=== PATIENT | female | born 1955 | race Caucasian/White ===

== ENCOUNTER → 2016-11-14 | Outpatient (CLI) | payer OTHER ==
[~2016-11-14] MED LIST: AMIT25TA9 PO; CYAN100020 PO; CYAN500T13 PO; GABA1CAP PO; GABA600T PO; IBUP-1277 PO; LISI-461 PO; LISI10TA PO; MELO15TA4 PO; MULT-506 PO; MULTTAB58 PO; OMEG10007 PO; OMEGCAP2 PO; ONDA4TAB7 SL; OXYC1TAB3 PO; SIMV20TA2 PO; SIMV20TA5 PO
[2016-11-14 17:48] LABS: BLOOD UREA NITROGEN 17 mg/dl (7-18); BUN/CREATININE RATIO 13.2 (10-20); CALCIUM 9.2 mg/dl (8.5-10.1); CARBON DIOXIDE 27 mmol/L (21-32); CHLORIDE 111 mmol/L (98-107); GLUCOSE 88 mg/dl (70-99); POTASSIUM 3.9 mmol/L (3.5-5.1); SODIUM 146 mmol/L (136-145)
[2016-11-14 17:55] LABS: ALT/SGPT 28 U/L (12-78); CHOLESTEROL 150 mg/dl (0-200); CHOLESTEROL/HDL RATIO 3.3; HDL CHOLESTEROL 46 mg/dl; LDL CHOLESTEROL CALCULATED 78 mg/dl; TRIGLYCERIDES 132 mg/dl (0-150); VERY LOW DENSITY LIPOPROT CALC 26 mg/dl
== END | disposition home or self-care (01) ==
LOC: C.LABPBG 11:46
PROVIDERS: ATTEND Family Medicine
DX: I10 Essential (primary) hypertension (principal); E78.5 Hyperlipidemia, unspecified

== ENCOUNTER → 2017-05-31 | Day surgery (SDC) | payer OTHER ==
[2017-05-23 09:39] VITALS: Ht 154.9 cm; Wt 75.5 kg
[~2017-05-31] VITALS: Ht 154.9 cm; Wt 75.5 kg
[~2017-05-31] MED LIST changes: -AMIT25TA9 PO; -CYAN500T13 PO; -GABA1CAP PO; -IBUP-1277 PO; +LIDOCAINE HCL 2% 2 ML VIAL (20MG/ML) ONE; -LISI10TA PO; +MIDAZOLAM HCL 1 MG/ML 2ML VIAL ONE; -MULTTAB58 PO; -OMEGCAP2 PO; -ONDA4TAB7 SL; -OXYC1TAB3 PO; +PROPOFOL IV EMULSION 10 MG/ML 20 ML VIAL IV ONE; -SIMV20TA5 PO; +SODIUM CHLORIDE 0.9% 500ML 500 ML IV ONE
--- NOTE | 2017-05-31 11:13 | Endo History and Physical ---
History & Physical Date of Service: May 31, 2017. Chief Complaint: screening Referring Physician: Dr. Tameka Villafana History of Present Illness 62 yo CF who presents for screening colonoscopy. Past Surgical History Hx Cardiac Surgery: No Hx Internal Defibrillator: No Hx Pacemaker: No Hx Abdominal Surgery: Yes (OVARIAN CYST REMOVAL, PARTIAL HYSTERECTOMY) Hx of Implantable Prosthesis: No Hx Post-Op Nausea and Vomiting: No Hx Cancer Surgery: No Hx Thoracic Surgery: No Hx Orthopedic: No Hx Urinary Tract Surgery: No Family History None Social History Smoking Status: Never Smoker Hx Substance Use: No Hx Alcohol Use: No Allergies Coded Allergies: BEE STING (Verified Allergy, Severe, ANAPHYLAXIS, 05/23/17) Molds and Smuts (Verified Allergy, Unknown, WATERY EYES, 05/23/17) NO KNOWN DRUG ALLERGIES (Verified Allergy, Unknown, ., 05/23/17) Uncoded Allergies: ANIMAL FUR/HAIR (Allergy, Unknown, ., 05/23/17) Current Medications Reported Home Medications Medications Dose Route/Sig Max Daily Dose Days Date Category Zestril (Lisinopril) 10 Mg Tab 5 Mg PO QAM 05/23/17 Reported Zocor (Simvastatin) 20 Mg Tab 20 Mg PO HS 05/23/17 Reported Mobic (Meloxicam) 15 Mg Tab 15 Mg PO QAM 05/23/17 Reported Multivitamin (Multivitamins) Tab 1 Tab PO HS 05/23/17 Reported Neurontin (Gabapentin) 600 Mg Tab 600 Mg PO TID 05/23/17 Reported [place]-3 (Fish Oil) 1 Ea Cap 1 Cap PO QAM 05/23/17 Reported Vitamin B12 (Cyanocobalamin) 1,000 Mcg Tab 1 Tab PO QAM 05/23/17 Reported Vital Signs Weight (Kilograms): 75.45 Height (Feet): 5 Height (Inches): 1 Date Time Temp Pulse Resp B/P (MAP) Pulse Ox O2 Delivery O2 Flow Rate FiO2 05/31/17 10:22 36.5 94 20 141/72 (95) 97 Room Air Physical Exam General Appearance: WD/WN, no apparent distress Respiratory/Chest: Auscultation: breath sounds normal Cardiovascular: Heart Auscultation: RRR Abdomen: Bowel Sounds: normal Inspection & Palpation: soft, non-distended, no tenderness, guarding & rebound Assessment and Plan Assessment: 62 yo CF who presents for screening colonoscopy. Plan: Proceed with Colonoscopy.
--- NOTE | 2017-05-31 11:47 | GI REPORT ---
Procedure Date: 05/31/2017 10:45 AM Procedure: Colonoscopy Indications: Screening for colorectal malignant neoplasm Medicines: Monitored Anesthesia Care Complications: No immediate complications. Estimated Blood Loss: Estimated blood loss: none. Procedure: Pre-Anesthesia Assessment: - Prior to the procedure, a History and Physical was performed, and patient medications and allergies were reviewed. The patient's tolerance of previous anesthesia was also reviewed. The risks and benefits of the procedure and the sedation options and risks were discussed with the patient. All questions were answered, and informed consent was obtained. Prior Anticoagulants: The patient has taken no previous anticoagulant or antiplatelet agents. ASA Grade Assessment: II - A patient with mild systemic disease. After reviewing the risks and benefits, the patient was deemed in satisfactory condition to undergo the procedure. After I obtained informed consent, the scope was passed under direct vision. Throughout the procedure, the patient's blood pressure, pulse, and oxygen saturations were monitored continuously. The scope was introduced through the anus and advanced to the cecum, identified by appendiceal orifice and ileocecal valve. The colonoscopy was performed without difficulty. The patient tolerated the procedure well. The quality of the bowel preparation was good. The terminal ileum, ileocecal valve, appendiceal orifice, and rectum were photographed. Findings: Three sessile polyps were found in the rectum, in the sigmoid colon and in the ascending colon. The polyps were 4 to 7 mm in size. These polyps were removed with a hot snare. Resection and retrieval were complete. Multiple small-mouthed diverticula were found in the sigmoid colon. Non-bleeding internal hemorrhoids were found during retroflexion. Impression: - Three 4 to 7 mm polyps in the rectum, in the sigmoid colon and in the ascending colon, removed with a hot snare. Resected and retrieved. - Diverticulosis in the sigmoid colon. - Non-bleeding internal hemorrhoids. Recommendation: - Resume previous diet. - Continue present medications. - Repeat colonoscopy for surveillance based on pathology results. - Return to primary care physician as previously scheduled. Akash Arrington DO 05/31/2017 11:47:01 AM This report has been signed electronically. Note Initiated On: 05/31/2017 10:45 AM I attest to the content of the Intraoperative Record and orders documented therein, exceptions below
--- NOTE | 2017-05-31 11:49 | Discharge Instructions ---
Endoscopy Patient Instructions Date / Procedure(s) Performed May 31, 2017. Colonoscopy Allergy Information Coded Allergies: BEE STING (Verified Allergy, Severe, ANAPHYLAXIS, 05/23/17) Molds and Smuts (Verified Allergy, Unknown, WATERY EYES, 05/23/17) NO KNOWN DRUG ALLERGIES (Verified Allergy, Unknown, ., 05/23/17) Uncoded Allergies: ANIMAL FUR/HAIR (Allergy, Unknown, ., 05/23/17) Discharge Date / Findings May 31, 2017. Colon polyps Diverticulosis Internal hemorrhoids Medication Instructions OK to resume all medications today as prescribed Reported Home Medications Medications Dose Route/Sig Max Daily Dose Days Date Category Zestril (Lisinopril) 10 Mg Tab 5 Mg PO QAM 05/23/17 Reported Zocor (Simvastatin) 20 Mg Tab 20 Mg PO HS 05/23/17 Reported Mobic (Meloxicam) 15 Mg Tab 15 Mg PO QAM 05/23/17 Reported Multivitamin (Multivitamins) Tab 1 Tab PO HS 05/23/17 Reported Neurontin (Gabapentin) 600 Mg Tab 600 Mg PO TID 05/23/17 Reported [place]-3 (Fish Oil) 1 Ea Cap 1 Cap PO QAM 05/23/17 Reported Vitamin B12 (Cyanocobalamin) 1,000 Mcg Tab 1 Tab PO QAM 05/23/17 Reported Provider Instructions Activity Restrictions - No exercising or heavy lifting for 24 hours. - Do not drink alcohol the day of the procedure. - Do not drive a car or operate machinery until the day after the procedure. - Do not make any important decisions or sign important papers in 24 hours after the procedure. Following Day: - Return to full activity which may include returning to work/school. Diet Start your diet with liquids and light foods (jello, soup, juice, toast). Then eat your usual diet if not nauseated. Treatment For Common After Affects For mild abdominal pain, bloating, or excessive gas: - Rest - Eat lightly - Lie on right side Follow-Up Information Follow-up with Dr. Tameka Villafana as scheduled Anesthesia Information What You Should Know You have had a procedure that required some medicine to reduce anxiety and discomfort. This treatment is called moderate sedation. After receiving the treatment, you may be sleepy, but you will be able to breathe on your own. The effects of the treatment may last for several hours. Follow these instructions along with Activity/Diet recommendations noted above: * Do NOT do anything where dizziness or clumsiness would be dangerous. * Rest quietly at home today, then you can be up and about tomorrow. * Have a responsible person stay with you the rest of today. * You may have had an I.V. today. If so, you may take the dressing off later today. Recommendations Call your doctor if: * Trouble breathing * Continuous vomiting for more than 24 hours * Temperature above 101 degrees * Severe abdominal pain or bloating * Pain not relieved by pain medicine ordered * There is increased drainage or redness from any incision * A large amount of rectal bleeding greater than 2-3 tablespoons. (If you had a polyp/s removed or have hemorrhoids, a small amount of blood - from the rectum is to be expected.) * You have any unanswered questions or concerns. IN THE EVENT OF A SERIOUS EMERGENCY, GO TO THE NEAREST EMERGENCY ROOM Your discharge instructions were prepared by provider Akash Arrington. Patient Instructions Signature Page Tc Mahoney Patient (or Guardian) Signature/Date: I have read and understand the instructions given to me by my caregivers. Caregiver/RN/Doctor Signature/Date: The above-named patient and/or guardian has received patient instructions on this date. + Original Patient Signature Page (only) stays with chart. Please make copy for patient.
[2017-05-31 12:15] VITALS: BP 113/75; PULSE 82; O2SAT 98
--- NOTE | 2017-05-31 12:25 | Anesthesiology Progress Note ---
Anesthesia Post Op Note Date & Time May 31, 2017 at 12:24 Vital Signs Pain Intensity: 0 Vital Signs Past 12 Hours Date Time Temp Pulse Resp B/P (MAP) Pulse Ox O2 Delivery O2 Flow Rate FiO2 05/31/17 12:15 82 20 113/75 (88) 98 Room Air 05/31/17 12:00 86 18 111/78 (89) 96 Room Air 05/31/17 11:45 93 12 93/62 (72) 96 Room Air 05/31/17 10:22 36.5 94 20 141/72 (95) 97 Room Air Notes Mental Status: alert / awake / arousable, participated in evaluation Pt Amnestic to Procedure: Yes Nausea / Vomiting: adequately controlled Pain: adequately controlled Airway Patency, RR, SpO2: stable & adequate BP & HR: stable & adequate Hydration State: stable & adequate Anesthetic Complications: no major complications apparent
== END | disposition home or self-care (01) ==
LOC: C.GI 09:49
PROVIDERS: ATTEND Internal Medicine
DX: Z12.11 Encounter for screening for malignant neoplasm of colon (principal); D12.2 Benign neoplasm of ascending colon; D12.5 Benign neoplasm of sigmoid colon; I10 Essential (primary) hypertension; E78.5 Hyperlipidemia, unspecified; M19.90 Unspecified osteoarthritis, unspecified site; K57.30 Diverticulosis of large intestine without perforation or abscess without bleeding; K64.8 Other hemorrhoids; Z90.710 Acquired absence of both cervix and uterus

== ENCOUNTER 2017-06-12 09:13 | Emergency (ER) | payer OTHER ==
[~2017-06-12] VITALS: Ht 154.9 cm; Wt 76.3 kg
[~2017-06-12 09:13] MED LIST changes: -LIDOCAINE HCL 2% 2 ML VIAL (20MG/ML) ONE; -MIDAZOLAM HCL 1 MG/ML 2ML VIAL ONE; -PROPOFOL IV EMULSION 10 MG/ML 20 ML VIAL IV ONE; -SODIUM CHLORIDE 0.9% 500ML 500 ML IV ONE
[2017-06-12 09:27] VITALS: TEMP 36.9; Ht 154.9 cm; Wt 76.3 kg
[2017-06-12] MEDS ORDERED: SODIUM CHLORIDE 0.9% 1000ML 2,000 ML IV STA (10:08)
[2017-06-12] MEDS ORDERED: ONDANSETRON INJ 2 MG/ML 2 ML VIAL IV STA (10:08)
--- NOTE | 2017-06-12 10:43 | DIAGNOSTIC IMAGING REPORT ---
CHEST ONE VIEW PORTABLE CLINICAL HISTORY: near syncope mental status change COMPARISON STUDY: No previous studies for comparison. FINDINGS: The bones soft tissues and hemidiaphragms are normal. The cardiomediastinal silhouette is normal. The lungs are clear. The pulmonary vasculature is normal. IMPRESSION: Negative chest. The above report was generated using voice recognition software. It may contain grammatical, syntax or spelling errors. Electronically signed by: Donovan Gonzalez M.D. 06/12/2017 10:42 AM Dictated Date/Time: 06/12/2017 10:42 AM
[2017-06-12 11:00] LABS: URINE APPEARANCE CLEAR (CLEAR); URINE BILIRUBIN NEG (NEG); URINE COLOR YELLOW; URINE NITRITE NEG (NEG); URINE SPECIFIC GRAVITY 1.008 (1.000-1.030); UROBILINOGEN NEG (NEG); ZZUR CULT IF INDIC CLEAN CATCH NO
[2017-06-12 11:02] LABS: MANUAL MICROSCOPIC REQUIRED? NO; REVIEW REQ? NO
[2017-06-12 11:08] LABS: ALT/SGPT 28 U/L (12-78); AST/SGOT 22 U/L (15-37); BLOOD UREA NITROGEN 9 mg/dl (7-18); BUN/CREATININE RATIO 8.9 (10-20); CALCIUM 9.3 mg/dl (8.5-10.1); CARBON DIOXIDE 27 mmol/L (21-32); CHLORIDE 109 mmol/L (98-107); CREATININE 1.06 mg/dl (0.60-1.20); GLUCOSE 108 mg/dl (70-99); POTASSIUM 3.5 mmol/L (3.5-5.1); SODIUM 144 mmol/L (136-145)
[2017-06-12 11:13] LABS: ALKALINE PHOSPHATASE 102 U/L (45-117)
[2017-06-12 11:25] LABS: HEMATOCRIT 45.4 % (37-47); MEAN CELL VOLUME 84.5 fL (80-100); MEAN CORPUSCULAR HEMOGLOBIN 29.6 pg (25-34); PLATELET COUNT 52 K/uL (130-400); RED BLOOD COUNT 5.37 M/uL (4.2-5.4)
[2017-06-12 11:27] LABS: BASO ABS # 0.09 K/uL (0-0.2); BASOPHIL % 1.7 %; COMPLETE YES; EOSINOPHIL % 0.9 %; LYMPH ABS # 0.95 K/uL (1.2-3.4); LYMPHOCYTE % 18.3 %; NEUTROPHILS % 64.3 %; PLT ESTIMATE DECREASED; TOXIC GRANULATION 1+; VARIANT LYM ABS # 0.59 K/uL; VARIANT LYMPHOCYTE % 11.3 %
[2017-06-12] MEDS ORDERED: OPTIRAY 320 IV PRN (11:30)
--- NOTE | 2017-06-12 11:42 | DIAGNOSTIC IMAGING REPORT ---
ABD/PELVIS IV CONTRAST ONLY CT DOSE: 544.90 mGy.cm HISTORY: Pain diffuse abd pain TECHNIQUE: Multiaxial CT images of the abdomen and pelvis were performed following the use of intravenous contrast. A dose lowering technique was utilized adhering to the principles of ALARA. COMPARISON STUDY: None. FINDINGS: Lung bases are clear. Liver enhances uniformly. 2.3 cm gallstone within the gallbladder fundal region. Pancreas is uniform. Kidneys enhance uniformly. The adrenal glands are normal. Visualized components appendix are unremarkable. Bowel pattern is nonobstructive. Subtle wall thickening of the sigmoid colon with a potential trace amount of pericolonic infiltrative change of the mid sigmoid. A low-grade component of diverticulitis is considered. There is no evidence for abscess collection or obstruction. Bladder is midline. IMPRESSION: 1. Minimal/mild mid sigmoid diverticulitis. 2. No evidence for abscess collection or obstruction. 3. Nonobstructive bowel pattern with partial visibility of a normal-appearing appendix. 4. Gallstone. The above report was generated using voice recognition software. It may contain grammatical, syntax or spelling errors. Electronically signed by: Donovan Gonzalez M.D. 06/12/2017 11:41 AM Dictated Date/Time: 06/12/2017 11:35 AM
[2017-06-12] MEDS ORDERED: CIPR-255 PO (12:29)
[2017-06-12] MEDS ORDERED: METR-162 PO (12:29)
[2017-06-12] MEDS ORDERED: CIPROFLOXACIN 500 MG TAB PO STA (12:30)
[2017-06-12] MEDS ORDERED: METRONIDAZOLE 250 MG TAB PO STA (12:30)
[2017-06-12] MEDS ORDERED: ONDA4TAB46 PO (12:35)
[2017-06-12 12:46] VITALS: BP 107/93; PULSE 70; O2SAT 96
--- NOTE | 2017-06-12 16:26 | EMERGENCY ROOM VISIT NOTE ---
History Report prepared by Melecio: Calvin Falk Under the Supervision of: Dr. Hao Logan D.O. First contact with patient: 09:46 Chief Complaint: NAUSEA Stated Complaint: NAUSEA, JIMENES, RUNNY NOSE, PASSING OUT SX Nursing Triage Summary: Pt states, "I am very weak and passing out. I caught myself a couple times so far today. I have nausea, chills and a h/a. I noticed black stool today, that is unusual." Sx x 2 days. Diffuse abd pain, right back pain. History of Present Illness The patient is a 62 year old female who presents to the Emergency Room with complaints of persistent nausea beginning two days ago. She also complains of headaches, lightheadedness, generalized weakness, and runny nose. She states that she is having difficulty eating due to her symptoms. The patient denies LOC , urinary symptoms, SOB, vomiting, cough, or abdominal pain. Her last bowel movement was two hours ago, though was abnormally small. She notes that she had an episode of dark, tarry stool last night. The patient had a colonoscopy 12 days ago which revealed hemorrhoids and polyps. Her stool was not abnormal until last night. She takes no blood thinners. Denies any chest pain, shortness breath. Source of History: patient Onset: Two days ago Quality: other (nausea) Timing: other (persistent) Associated Symptoms: + headache, + back pain (intermittent), + melena, + weakness (generalized), No LOC, No cough, No SOB, No vomiting, No abdominal pain , No urinary symptoms Note: The patient also complains of lightheadedness, and runny nose. Review of Systems See HPI for pertinent positives & negatives. A total of 10 systems reviewed and were otherwise negative. Past Medical & Surgical Medical Problems: (1) HTN (hypertension) (2) Hypercholesterolemia (3) Kidney disease Family History Cancer Heart disease Hypertension Kidney disease Kidney stones Social History Smoking Status: Never Smoker Alcohol Use: none Marital Status: Housing Status: lives with family Current/Historical Medications Scheduled Ciprofloxacin Hcl (Cipro), 500 MG PO BID Cyanocobalamin (Vitamin B12), 1 TAB PO QAM Fish Oil ([place]-3), 1 CAP PO QAM Gabapentin (Neurontin), 600 MG PO TID Lisinopril (Zestril), 5 MG PO QAM Meloxicam (Mobic), 15 MG PO QAM Metronidazole (Flagyl), 500 MG PO TID Multivitamin (Multivitamin), 1 TAB PO HS Simvastatin (Zocor), 20 MG PO HS Scheduled PRN Ondansetron Hcl (Zofran), 4 MG PO TID PRN for nausea Allergies Coded Allergies: BEE STING (Verified Allergy, Severe, ANAPHYLAXIS, 06/12/17) Molds and Smuts (Verified Allergy, Unknown, WATERY EYES, 06/12/17) NO KNOWN DRUG ALLERGIES (Verified Allergy, Unknown, ., 06/12/17) Uncoded Allergies: ANIMAL FUR/HAIR (Allergy, Unknown, ., 05/23/17) Physical Exam Vital Signs Date Time Temp Pulse Resp B/P (MAP) Pulse Ox O2 Delivery O2 Flow Rate FiO2 06/12/17 12:46 70 20 107/93 96 06/12/17 11:09 84 20 149/81 96 Room Air 06/12/17 09:27 36.9 101 18 154/76 97 Room Air Physical Exam GENERAL: Sitting up in bed, alert, well appearing, well nourished, no distress, non-toxic EYE EXAM: normal conjunctiva, PERRL and EOM's grossly intact OROPHARYNX: no exudate, no erythema, lips, buccal mucosa, and tongue normal and mucous membranes are moist NECK: supple, no nuchal rigidity, no adenopathy, non-tender LUNGS: Clear to auscultation. Normal chest wall mechanics HEART: no murmurs, S1 normal and S2 normal ABDOMEN: abdomen soft, non-tender, normo-active bowel sounds, no masses, no rebound or guarding. BACK: Back is symmetrical on inspection and there is no deformity, no midline tenderness, no CVA tenderness. RECTAL: External hemorrhoids present. Dark stool that is heme negative. SKIN: no rashes and no bruising UPPER EXTREMITIES: upper extremities are grossly normal. LOWER EXTREMITIES: No pitting edema. NEURO EXAM: Normal sensorium, cranial nerves II-XII intact, normal speech, no weakness of arms, no weakness of legs. No drift. Finger to nose intact. Gross sensation intact. Medical Decision & Procedures ER Provider Diagnostic Interpretation: Radiology results as stated below per my review and the radiologist's interpretation: ABD/PELVIS IV CONTRAST ONLY FINDINGS: Lung bases are clear. Liver enhances uniformly. 2.3 cm gallstone within the gallbladder fundal region. Pancreas is uniform. Kidneys enhance uniformly. The adrenal glands are normal. Visualized components appendix are unremarkable. Bowel pattern is nonobstructive. Subtle wall thickening of the sigmoid colon with a potential trace amount of pericolonic infiltrative change of the mid sigmoid. A low-grade component of diverticulitis is considered. There is no evidence for abscess collection or obstruction. Bladder is midline. IMPRESSION: 1. Minimal/mild mid sigmoid diverticulitis. 2. No evidence for abscess collection or obstruction. 3. Nonobstructive bowel pattern with partial visibility of a normal-appearing appendix. 4. Gallstone. The above report was generated using voice recognition software. It may contain grammatical, syntax or spelling errors. Electronically signed by: Donovan Gonzalez M.D. 06/12/2017 11:41 AM CHEST ONE VIEW PORTABLE FINDINGS: The bones soft tissues and hemidiaphragms are normal. The cardiomediastinal silhouette is normal. The lungs are clear. The pulmonary vasculature is normal. IMPRESSION: Negative chest. The above report was generated using voice recognition software. It may contain grammatical, syntax or spelling errors. Electronically signed by: Donovan Gonzalez M.D. 06/12/2017 10:42 AM Laboratory Results 06/12/17 10:20 Red Blood Count 5.37, Mean Corpuscular Volume 84.5, Mean Corpuscular Hemoglobin 29.6, Mean Corpuscular Hemoglobin Concent 35.0 06/12/17 10:20 Test 06/12/17 09:56 06/12/17 10:20 Urine Color YELLOW Urine Appearance CLEAR (CLEAR) Urine pH 6.0 (4.5-7.5) Urine Specific [place] 1.008 (1.000-1.030) Urine Protein NEG (NEG) Urine Glucose (UA) NEG (NEG) Urine Ketones NEG (NEG) Urine Occult Blood NEG (NEG) Urine Nitrite NEG (NEG) Urine Bilirubin NEG (NEG) Urine Urobilinogen NEG (NEG) Urine Leukocyte Esterase NEG (NEG) Urine WBC (Auto) 0 /hpf (0-5) Urine RBC (Auto) 0-4 /hpf (0-4) Urine Hyaline Casts (Auto) 0 /lpf (0-5) Urine Epithelial Cells (Auto) 10-20 /lpf (0-5) Urine Bacteria (Auto) NEG (NEG) Urine Test NEG (NEG) White Blood Count 5.20 K/uL (4.8-10.8) Red Blood Count 5.37 M/uL (4.2-5.4) Hemoglobin 15.9 g/dL (12.0-16.0) Hematocrit 45.4 % (37-47) Mean Corpuscular Volume 84.5 fL (80-100) Mean Corpuscular Hemoglobin 29.6 pg (25-34) Mean Corpuscular Hemoglobin Concent 35.0 g/dl (32-36) Platelet Count 52 K/uL (130-400) RDW Standard Deviation 42.3 fL (36.4-46.3) RDW Coefficient of Variation 13.9 % (11.5-14.5) Neutrophils % (Manual) 64.3 % Lymphocytes % (Manual) 18.3 % Variant Lymphocytes % (manual) 11.3 % Monocytes % (Manual) 3.5 % Eosinophils % (Manual) 0.9 % Basophils % (Manual) 1.7 % Neutrophils # (Manual) 3.34 K/uL (1.4-6.5) Total Absolute Neutrophils 3.34 K/uL (1.4-6.5) Lymphocytes # (Manual) 0.95 K/uL (1.2-3.4) Absolute Variant Lymphocytes 0.59 K/uL Total Absolute Lymphocytes 1.54 K/uL (1.2-3.4) Monocytes # (Manual) 0.18 K/uL (0.11-0.59) Eosinophils # (Manual) 0.05 K/uL (0-0.5) Basophils # (Manual) 0.09 K/uL (0-0.2) Toxic Granulation 1+ Platelet Estimate DECREASED Anion Gap 8.0 mmol/L (3-11) Est Creatinine Clear Calc Drug Dose 50.7 ml/min Estimated GFR () 64.7 Estimated GFR (Non- 55.8 BUN/Creatinine Ratio 8.9 (10-20) Calcium Level 9.3 mg/dl (8.5-10.1) Total Bilirubin 0.7 mg/dl (0.2-1) Direct Bilirubin 0.1 mg/dl (0-0.2) Aspartate Amino Transf (AST/SGOT) 22 U/L (15-37) Alanine Aminotransferase (ALT/SGPT) 28 U/L (12-78) Alkaline Phosphatase 102 U/L (45-117) Troponin I < 0.015 ng/ml (0-0.045) Total Protein 7.3 gm/dl (6.4-8.2) Albumin 3.8 gm/dl (3.4-5.0) Lipase 176 U/L (73-393) Laboratory results per my review. Medications Administered Medications (Trade) Dose Ordered Sig/Vanessa Route Start Time Stop Time Status Last Admin Dose Admin Sodium Chloride 2,000 ml @ 999 mls/hr Q2H1M STAT IV 06/12/17 10:08 06/12/17 12:08 DC 06/12/17 10:49 999 MLS/HR Ondansetron HCl (Zofran Inj) 4 mg NOW STAT IV 06/12/17 10:08 06/12/17 10:10 DC 06/12/17 10:50 4 MG Metronidazole (Flagyl Tab) 500 mg NOW STAT PO 06/12/17 12:30 06/12/17 12:31 DC 06/12/17 12:40 500 MG Ciprofloxacin (Cipro Tab) 500 mg NOW STAT PO 06/12/17 12:30 06/12/17 12:31 DC 06/12/17 12:40 500 MG ECG Indication: nausea Rate (beats per minute): 87 Rhythm: sinus rhythm Findings: no ectopy, other (Normal axis. ) ED Course ED COURSE: Vital signs were reviewed and showed tachycardia The patients medical record was reviewed The above diagnostic studies were performed and reviewed. ED treatments and interventions as stated above. 0959: The patient was evaluated in room A9A. A complete history and physical examination was performed. 1008: Ordered Zofran Inj 4 mg IV, Sodium Chloride 2000 ml @ 999 mls/hr IV. 1130: I checked in on the patient. She is at CT. I updated her who states that the patient is feeling better. 1230: Ordered Cipro Tab 500 mg PO, Flagyl Tab 500 mg PO. 1235: Upon reevaluation, the patient is resting comfortably. I discussed my findings with the patient and she understands and agrees with the treatment plan. Based on the patients age, coexisting illnesses, exam and lab findings the decision to treat as an outpatient was made. The patient remained stable while under my care. The patient appeared well at the time of discharge. Medical Decision Differential diagnosis includes etiologies such as diverticulosis, AVM, coagulopathy, colitis, inflammatory bowel disease, malignancy, Natalia-Pham tear, esophagitis, peptic ulcer disease, variceal bleed, gastritis, epistaxis, fissure, hemorrhoids, as well as others were entertained. Patient is a 62-year-old female who presents to ER for lower abdominal pain associated with nausea. She missed to feeling lightheaded. Denies any chest pain or shortness of breath. Does admit to dark tarry bowel movement. CBC shows no significant leukocytosis. No anemia. BMP all LFTs, bilirubin lipase is unremarkable. Troponin was negative. BUN is not elevated to suggest an upper GI bleed. UA was negative. was negative. Chest x-ray was unremarkable. EKG was nondiagnostic. CT of the abdomen and pelvis suggest diverticulitis. Rectal was heme negative. Patient was given antibiotics and updated bedside. She was feeling significantly better. She is discharged follow-up with PCP with diverticulitis. Discussed with Pt concerning signs and symptoms to watch out for. Pt was instructed to follow up with their PCP and discussed with the patient their option to return to the ED at anytime for persistent or worsening symptoms. The appropriate anticipatory guidance and out- patient management, including indications for return to the emergency department , were explained at length to the patient and understood. Medication Reconcilliation Current Medication List: was personally reviewed by me Blood Pressure Screening Patient's blood pressure: Elevated blood pressure Blood pressure disposition: Elevated BP felt to be situational Impression Primary Impression: Diverticulitis Scribe Attestation The scribe's documentation has been prepared under my direction and personally reviewed by me in its entirety. I confirm that the note above accurately reflects all work, treatment, procedures, and medical decision making performed by me. Departure Information Dispostion Home / Self-Care Prescriptions Ondansetron Hcl (ZOFRAN) 4 Mg Tab 4 MG PO TID Y for nausea, #30 TAB Prov: Hao Logan, DO 06/12/17 Ciprofloxacin Hcl (CIPRO) 500 Mg Tab 500 MG PO BID, #20 TAB Prov: Hao Logan, DO 06/12/17 Metronidazole (FLAGYL) 500 Mg Tab 500 MG PO TID for 10 Days, #30 TAB Prov: Hao Logan, DO 06/12/17 Referrals Tameka Villafana MD (PCP) Forms HOME CARE DOCUMENTATION FORM, IMPORTANT VISIT INFORMATION Patient Instructions Diverticulitis Dc, My [facility] Additional Instructions Please follow up with your primary care doctor with in the next 24 hours. Any worsening of your symptoms, please return to the ED immediately. This includes any fevers greater than 100.4, worsening pain, chest pain, shortness breath, persistent nausea, vomiting, unable to eat or drink, dark tarry stools, blood in your stool, or any other concerning signs or symptoms from your standpoint. You were given medications during this visit that will inhibit your ability to drive, operate machinery and work. Please do NOT drive, operate machinery, drink alcohol or work for the next 12hrs. Please take antibiotics as prescribed. Problem Qualifiers Primary Impression: Diverticulitis Diverticulitis site: large intestine Diverticulitis bleeding: without bleeding Diverticulitis complication: without perforation or abscess Qualified Codes: K57.32 - Diverticulitis of large intestine without perforation or abscess without bleeding
== END 2017-06-12 12:49 | disposition home or self-care (01) ==
LOC: C.EDB 09:15 → C.EDA 12:49
DX: K57.92 Diverticulitis of intestine, part unspecified, without perforation or abscess without bleeding (principal); I12.9 Hypertensive chronic kidney disease with stage 1 through stage 4 chronic kidney disease, or unspecified chronic kidney disease; N18.9 Chronic kidney disease, unspecified; E78.00 Pure hypercholesterolemia, unspecified; Z79.899 Other long term (current) drug therapy; Z91.030 Bee allergy status; Z80.9 Family history of malignant neoplasm, unspecified; Z82.49 Family history of ischemic heart disease and other diseases of the circulatory system; Z84.1 Family history of disorders of kidney and ureter

== ENCOUNTER → 2017-08-04 | Outpatient (CLI) | payer OTHER ==
[~2017-08-04] MED LIST changes: +CIPR-255 PO; +ONDA4TAB46 PO
--- NOTE | 2017-08-07 08:00 | MAMMOGRAPHY REPORT ---
BILATERAL DIGITAL SCREENING MAMMOGRAM TOMOSYNTHESIS WITH CAD: 08/04/2017 CLINICAL HISTORY: Routine screening. Patient has no complaints. TECHNIQUE: Breast tomosynthesis in addition to standard 2D mammography was performed. Current study was also evaluated with a Computer Aided Detection (CAD) system. COMPARISON: Prior outside mammograms dated 05/01/2014, 05/09/2013, 05/06/2014. BREAST COMPOSITION: There are scattered areas of fibroglandular density in both breasts. FINDINGS: No suspicious masses, calcifications, or areas of architectural distortion are noted in ei ther breast. There has been no significant interval change compared to prior exams. Scattered bilater al benign-appearing calcifications are not significantly changed. IMPRESSION: ACR BI-RADS CATEGORY 2: BENIGN There is no mammographic evidence of malignancy. A 1 year screening mammogram is recommended. The pa tient will receive written notification of the results. Approximately 10% of breast cancers are not detected with mammography. A negative mammographic report should not delay biopsy if a clinically suggestive mass is present. Melba Diaz M.D. ah/:08/04/2017 17:07:20 Bacteriologist Medical: Jessica SCOTT(Jonathon)([place])([place]), [facility] letter sent: Normal 1/2 BI-RADS Code: ACR BI-RADS Category 2: Benign
== END | disposition home or self-care (01) ==
LOC: C.MAMM 11:16
PROVIDERS: ATTEND Family Medicine
DX: Z12.31 Encounter for screening mammogram for malignant neoplasm of breast (principal)

== ENCOUNTER → 2017-12-06 | Outpatient (CLI) | payer OTHER ==
[~2017-12-06] MED LIST changes: +MELO-84 PO; -MELO15TA4 PO
[2017-12-06 13:32] LABS: ALT/SGPT 21 U/L (12-78); BLOOD UREA NITROGEN 10 mg/dl (7-18); CALCIUM 8.9 mg/dl (8.5-10.1); CARBON DIOXIDE 29 mmol/L (21-32); CREATININE 1.24 mg/dl (0.60-1.20); GLUCOSE 90 mg/dl (70-99); POTASSIUM 3.8 mmol/L (3.5-5.1); SODIUM 140 mmol/L (136-145)
[2017-12-06 13:35] LABS: CHOLESTEROL 150 mg/dl (0-200); LDL CHOLESTEROL CALCULATED 77 mg/dl
== END | disposition home or self-care (01) ==
LOC: C.LABPBG 08:41
PROVIDERS: ATTEND Family Medicine
DX: I10 Essential (primary) hypertension (principal); E78.5 Hyperlipidemia, unspecified